=== PATIENT | male | born 1985 | race African-American/Black ===

== ENCOUNTER 2017-08-12 12:02 | Emergency (ER) | payer MEDICAID ==
[2017-08-12] MEDS ORDERED: IBUPROFEN 400 MG TABLET PO ONE (12:30)
[2017-08-12] MEDS ORDERED: IBUPROFEN 400 MG TABLET ONE (12:35)
== END 2017-08-12 13:45 | disposition home or self-care (01) ==
DX: S86.811A Strain of other muscle(s) and tendon(s) at lower leg level, right leg, initial encounter (principal); M25.461 Effusion, right knee; W11.XXXA Fall on and from ladder, initial encounter; Y93.39 Activity, other involving climbing, rappelling and jumping off; Y92.89 Other specified places as the place of occurrence of the external cause; Y99.8 Other external cause status